=== PATIENT | female | born 2000 | race Caucasian/White ===

== ENCOUNTER 2021-11-17 10:11 | Emergency (ER) | payer OTHER ==
[2021-11-17 10:19] VITALS: BP 147/92
--- NOTE | 2021-11-17 10:41 | ED Physician Documentation ---
PD HPI ABD PAIN - Stated complaint Stated Complaint: MALE - Chief complaint Chief Complaint: Abd Pain - History obtained from History obtained from: Patient - Additional information Additional information: 21-year-old biological female who is transitioning to male and identifies as male has about a 1-month-old IUD in place. For about a week has had pelvic pain and today felt the IUD in an abnormal position and would like it removed. No bleeding. Review of Systems Constitutional: denies: Fever, Chills GI: reports: Abdominal Pain. 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 : None HEENT: None Psych: Depression, Anxiety, ADD/ADHD Musculoskeletal: Other Derm: None - Past Surgical History Past Surgical History: No - Present Medications Home Medications: Ambulatory Orders Medication Instructions Recorded Confirmed Lisdexamfetamine Dimesylate 30 mg ORAL DAILY 11/17/21 11/17/21 [Vyvanse] Montelukast [Singulair] 10 mg PO QPM 11/17/21 11/17/21 Propranolol HCl 20 mg PO DAILY PRN 11/17/21 11/17/21 Testosterone Cypionate 0 mg IM Q7D 11/17/21 11/17/21 - Allergies Allergies/Adverse Reactions: Allergies Allergy/AdvReac Type Severity Reaction Status Date / Time No Known Drug Allergies Allergy Verified 11/17/21 10:18 - Social History Does the pt smoke?: No Smoking Status: Never smoker Does the pt drink ETOH?: No Does the pt have substance abuse?: No - Immunizations Immunizations are current?: Yes PD ED PE NORMAL - Vitals Vital signs reviewed: Yes - General General: Alert and oriented X 3, No acute distress - Abdomen Abdomen: Soft, Non tender - Female Female : Other (TheExam and procedure done with Liz JALLOH present and chaperoning. IUD was visible, not just the strings but also the tip in the cervical os and per patient's request was removed.) - Neuro Neuro: Alert and oriented X 3, Normal speech Results - Vitals Vitals: Vital Signs - 24 hr 11/17/21 10:14 Temperature 36.1 C L Heart Rate 85 Respiratory 16 Rate Blood Pressure 147/92 H O2 Saturation 99 Oxygen O2 Source Room air Departure - Departure Disposition: 01 Home, Self Care Clinical Impression: Malpositioned IUD Qualifiers: Encounter type: initial encounter Qualified Code(s): T83.32XA - Displacement of intrauterine contraceptive device, initial encounter Condition: Good Record reviewed to determine appropriate education?: Yes Comments: We have removed your IUD today at your request, it was malpositioned. Return for new or worsening symptoms. You may have some cramping and bleeding over the next few days. You will need to use an alternative form of control.
[2021-11-17] MEDS ORDERED: IBUPROFEN 600 MG TABLET PO STA (11:16)
== END 2021-11-17 11:23 | disposition home or self-care (01) ==
LOC: EDSEX 10:11 → ED 10:11
DX: T83.32XA Displacement of intrauterine contraceptive device, initial encounter (principal); Z30.432 Encounter for removal of intrauterine contraceptive device
CPT/HCPCS: 58301; 99282; 99283; A9270

== ENCOUNTER 2022-01-08 18:52 | Emergency (ER) | payer OTHER ==
--- OUTSIDE RECORDS SUMMARY | 2022-01-08 19:16 | EXTERNAL MEDICAL SUMMARY RPT | Continuity of Care Document ---
:2000 Author Organization [facility] Address [address] [place] [address] Phone Care Team Providers Name Role Phone Unavailable Unavailable Unavailable Oseas Patel Pa-C Unavailable Unavailable Allergies No information. Encounters No information. Functional Status No information. Immunizations No information. Medications date description facility [id number]+0000 diclofenac sodium All [id number]+0000 diclofenac sodium All [id number]+0000 mupirocin All [id number]+0000 mupirocin All [id number]+0000 olopatadine All [id number]+0000 olopatadine All [id number]+0000 lisdexamfetamine All [id number]+0000 lisdexamfetamine All [id number]+0000 montelukast All [id number]+0000 montelukast All [id number]+0000 diclofenac sodium All [id number]+0000 diclofenac sodium All [id number]+0000 mupirocin All [id number]+0000 montelukast All [id number]+0000 montelukast All [id number]+0000 olopatadine All [id number]+0000 olopatadine All 15509532471538+0000 montelukast All [id number]+0000 montelukast All [id number]+0000 lisdexamfetamine All [id number]+0000 lisdexamfetamine All [id number]+0000 olopatadine All 79252230262452+0000 olopatadine All [id number]+0000 lisdexamfetamine All [id number]+0000 lisdexamfetamine All [id number]+0000 montelukast All [id number]+0000 montelukast All [id number]+0000 lisdexamfetamine All [id number]+0000 lisdexamfetamine All [id number]+0000 diclofenac sodium All [id number]+0000 diclofenac sodium All 23701452623401+0000 olopatadine All [id number]+0000 olopatadine All [id number]+0000 mupirocin All 13107953394652+0000 diclofenac sodium All [id number]+0000 diclofenac sodium All 80232650179294+0000 testosterone enanthate All [id number]+0000 testosterone enanthate All Problems No information. Procedures date description facility +0000 Visit Code Hold All Results/Labs No information. Social History date description facility +0000 Unknown if ever smoked All +0000 Unknown if ever smoked All Vital Signs date measurement value units +0000 BMI BMI 24.81 kg/m2 +0000 BP_diastolic BP_diastolic 86 mmHg +0000 BP_systolic BP_systolic 148 mmHg +0000 heart_rate heart_rate 88 /min +0000 height_metric height_metric 160.02 cm +0000 height_standard height_standard 63 in +0000 respiration_rate respiration_rate 14 /min +0000 temperature_metric temperature_metric 37.06 C +0000 temperature_standard temperature_standard 9 8.7 F +0000 weight_metric weight_metric 63.3 kg +0000 weight_standard weight_standard 139.56 lb
--- NOTE | 2022-01-08 21:08 | ED Physician Documentation ---
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 Patient is right-handed. Occurred about 4 hours prior to arrival. Continuing to bleed. Tetanus up-to-date. 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 : None HEENT: None Psych: Depression, Anxiety, ADD/ADHD Musculoskeletal: Other Derm: None - Past Surgical History Past Surgical History: No - Present Medications Home Medications: Ambulatory Orders Medication Instructions Recorded Confirmed Lisdexamfetamine Dimesylate 30 mg ORAL DAILY 11/17/21 11/17/21 [Vyvanse] Montelukast [Singulair] 10 mg PO QPM 11/17/21 11/17/21 Propranolol HCl 20 mg PO DAILY PRN 11/17/21 11/17/21 Testosterone Cypionate 0 mg IM Q7D 11/17/21 11/17/21 - Allergies Allergies/Adverse Reactions: Allergies Allergy/AdvReac Type Severity Reaction Status Date / Time No Known Drug Allergies Allergy Verified 01/08/22 19:11 - Social History Does the pt smoke?: No Smoking Status: Never smoker Does the pt drink ETOH?: No Does the pt have substance abuse?: No - Immunizations Immunizations are current?: Yes PD ED PE NORMAL - Vitals Vital signs reviewed: Yes - General General: Alert and oriented X 3, No acute distress - Derm Derm: Warm and dry - Extremities Extremities: Other (Left index finger - Small 0.1 cm avulsion to the tip of the index finger. No bony exposure. Very superficial. nvi) - Neuro Neuro: Alert and oriented X 3 Results - Vitals Vitals: Vital Signs - 24 hr 01/08/22 01/08/22 19:08 21:16 Temperature 37.4 C 36.7 C Heart Rate 74 82 Respiratory 16 18 Rate Blood Pressure 156/90 H 147/81 H O2 Saturation 100 100 Oxygen O2 Source Room air PD MEDICAL DECISION MAKING - ED course Complexity details: considered differential, d/w patient ED course: Dermabond was applied to the area after tourniquet in the blood flow. There is no further bleeding. Warnings of infection and instructions on wound care given at bedside. Patient counseled regarding signs and symptoms for which I believe and urgent re-evaluation would be necessary. Patient with good understanding of and agreement to plan and is comfortable going home at this time This document was made in part using voice recognition software. While efforts are made to proofread this document, sound alike and grammatical errors may oc cur. Departure - Departure Disposition: 01 Home, Self Care Clinical Impression: Finger laceration Qualifiers: Encounter type: initial encounter Finger: index finger Damage to nail status: without damage Foreign body presence: without foreign body Laterality: left Qualified Code(s): S61.211A - Laceration without foreign body of left index finger without damage to nail, initial encounter Condition: Good Instructions: ED Laceration Ext Skin Glue Follow-Up: Lois Isabel [Primary Care Provider] - As Needed Comments: Please follow-up with your primary care provider as needed for further care. Return if you worsen. Discharge Date/Time: 01/08/22 21:16
[2022-01-08 21:18] VITALS: BP 147/81
== END 2022-01-08 21:16 | disposition home or self-care (01) ==
LOC: ED 18:52
DX: S61.211A Laceration without foreign body of left index finger without damage to nail, initial encounter (principal); W27.8XXA Contact with other nonpowered hand tool, initial encounter
CPT/HCPCS: 99281; 99282

== ENCOUNTER 2022-06-17 22:34 | Emergency (ER) | payer OTHER ==
[2022-06-17] MEDS ORDERED: BUFFERED LIDOCAINE 10 ML SYRINGE SUBQ STA (22:42)
--- NOTE | 2022-06-17 22:43 | ED Physician Documentation ---
PD HPI LOWER EXT INJURY - Stated complaint Stated Complaint: BIG TOE PX,FEVER,CHILLS - History obtained from History obtained from: Patient (Bilateral foot great toenail are ingrown with chills today. 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 : None HEENT: None Psych: Depression, Anxiety, ADD/ADHD Musculoskeletal: Other Derm: None - Past Surgical History Past Surgical History: No - Present Medications Home Medications: Ambulatory Orders Medication Instructions Recorded Confirmed Montelukast [Singulair] 10 mg PO QPM 11/17/21 11/17/21 Propranolol HCl 20 mg PO DAILY PRN 11/17/21 11/17/21 Testosterone Cypionate 0 mg IM Q7D 11/17/21 11/17/21 Cetirizine [ZyrTEC] 10 mg PO DAILY 06/17/22 06/17/22 Ibuprofen [Motrin] 600 mg PO Q6H PRN 06/17/22 06/17/22 cephALEXin [Keflex] 500 mg PO Q6H 06/17/22 06/17/22 - Allergies Allergies/Adverse Reactions: Allergies Allergy/AdvReac Type Severity Reaction Status Date / Time No Known Drug Allergies Allergy Verified 06/17/22 22:49 - Social History Does the pt smoke?: No Smoking Status: Never smoker Does the pt drink ETOH?: No Does the pt have substance abuse?: No - Immunizations Immunizations are current?: Yes - POLST Patient has POLST: No PD ED PE NORMAL - Vitals Vital signs reviewed: Yes - General General: Alert and oriented X 3, No acute distress - Extremities Extremities: Other (Medial side of the right great toe and both sides of the left great toe are ingrown with infection) - Neuro Neuro: Alert and oriented X 3, Normal speech Results - Vitals Vitals: Vital Signs - 24 hr 06/17/22 22:35 Temperature 36.7 C Heart Rate 93 Respiratory 16 Rate Blood Pressure 155/100 H O2 Saturation 100 Oxygen O2 Source Room air Procedures - General procedure General procedure: Both great toes were blocked with buffered lidocaine in standard fashion. Then the medial and lateral fifths of the left great toenail and the medial fifth of the right great toenail were excised using scissors with out complication and dressed. Departure - Departure Clinical Impression: Ingrown toenail of both feet Condition: Good Record reviewed to determine appropriate education?: Yes Instructions: ED Ingrown Toenail Excised Comments: Continue the antibiotic. Warm water soaks and bandages. Return if worse.
[2022-06-17 22:47] VITALS: BP 155/100
== END 2022-06-17 23:31 | disposition home or self-care (01) ==
LOC: ED 22:34
DX: L60.0 Ingrowing nail (principal)
CPT/HCPCS: 11750

== ENCOUNTER 2022-09-29 14:33 | Emergency (ER) | payer OTHER ==
--- NOTE | 2022-09-29 15:28 | ED Physician Documentation ---
PD HPI URI - Stated complaint Stated Complaint: SOA,CHEST PX,FEVER,NAUSEA - Chief complaint Chief Complaint: Cardiac - History obtained from History obtained from: Patient - History of Present Illness Timing - onset: How many days ago (4) Timing duration: Days (4) Timing details: Gradual onset, Still present (The patient claims onset of sinus and frontal area congestion and pressure for the last 4 days progressively worsening and now associated with some allergic pain in the chest. No wheezing per se. Mild cough only.) Associated symptoms: Fever (subjective at home), Chills, Sweats, Nasal congestion (with purulent nasal drainage), Sinus pain, Dry cough. No: Sore throat, Productive cough Contributing factors: No: Sick contact, Travel Worsened by: Activity Recently seen: Not recently seen Review of Systems Constitutional: reports: Fever, Chills, Myalgias Nose: reports: Congestion, Sinus pressure / pain Throat: denies: Sore throat Cardiac: reports: Chest pain / pressure (today). denies: Palpitations Respiratory: reports: Cough. denies: Dyspnea GI: denies: Nausea, Vomiting, Diarrhea Skin: denies: Rash, Lesions Neurologic: reports: Generalized weakness. 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 : None HEENT: None Psych: Depression, Anxiety, ADD/ADHD Musculoskeletal: Other Derm: None - Past Surgical History Past Surgical History: No - Present Medications Home Medications: Ambulatory Orders Medication Instructions Recorded Confirmed Montelukast [Singulair] 10 mg PO QPM 11/17/21 11/17/21 Propranolol HCl 20 mg PO DAILY PRN 11/17/21 11/17/21 Testosterone Cypionate 0 mg IM Q7D 11/17/21 11/17/21 Cetirizine [ZyrTEC] 10 mg PO DAILY 06/17/22 06/17/22 Ibuprofen [Motrin] 600 mg PO Q6H PRN 06/17/22 06/17/22 cephALEXin [Keflex] 500 mg PO Q6H 06/17/22 06/17/22 Albuterol Sulf [Ventolin Hfa 1 - 2 puffs INH Q4HR PRN #1 each 09/29/22 Inhaler] Amoxicillin 500 mg PO TID #21 cap 09/29/22 dexAMETHasone [Decadron] 4 mg PO DAILY #5 tablet 09/29/22 - Allergies Allergies/Adverse Reactions: Allergies Allergy/AdvReac Type Severity Reaction Status Date / Time No Known Drug Allergies Allergy Verified 06/17/22 22:49 - Social History Does the pt smoke?: No Smoking Status: Never smoker Does the pt drink ETOH?: No Does the pt have substance abuse?: No - Immunizations Immunizations are current?: Yes - POLST Patient has POLST: No PD ED PE NORMAL - Vitals Vital signs reviewed: Yes - General General: Alert and oriented X 3, No acute distress, Well developed/nourished - HEENT HEENT: Moist mucous membranes, Pharynx benign - Neck Neck: Supple, no meningeal sign, No adenopathy - Cardiac Cardiac: RRR, No murmur - Respiratory Respiratory: Clear bilaterally - Derm Derm: Normal color, Warm and dry - Extremities Extremities: No edema, No calf tenderness / cord - Neuro Neuro: Alert and oriented X 3, No motor deficit, Normal speech Results - Vitals Vitals: Vital Signs - 24 hr 09/29/22 09/29/22 09/29/22 14:38 14:49 15:32 Temperature 36.6 C Heart Rate 52 L Respiratory 20 18 18 Rate Blood Pressure 141/92 H O2 Saturation 100 09/29/22 09/29/22 15:43 16:38 Temperature 36.7 C Heart Rate 55 L 64 Respiratory 14 17 Rate Blood Pressure 124/109 H 114/78 O2 Saturation 99 99 Oxygen O2 Source Room air - EKG (time done) 14:42 EKG releavant findings:: EKG personally interpreted by author of this note. Relevant findings are: Rate: Rate (enter#) (54) Rhythm: Sinus bradycardia [place]: Normal Intervals: Normal [place] QRS: Normal Ischemia: Normal ST segments. No: ST elevation c/w ischemia, ST depression - Rads (name of study) chest xray Relevant Findings:: Prelim report reviewed (no acute abnormality), EMP independent interpretation of test PD Medical Decision Making - ED course Complexity details: considered differential (Symptoms could be consistent with a sinus infection. Mild cough but mostly some pleuritic pain in the chest. History of asthma. Consider viral illness versus bacterial. EKG and chest x- ray without any acute abnormalities.), d/w patient Departure - Departure Disposition: 01 Home, Self Care Clinical Impression: Upper respiratory infection, Chest pain Condition: Stable Record reviewed to determine appropriate education?: Yes Instructions: ED Chest Pain Pleurisy Follow-Up: SILVESTRE COOK PA [Primary Care Provider] - Prescriptions: Albuterol Sulf [Ventolin Hfa Inhaler] 1 - 2 puffs INH Q4HR PRN #1 each PRN Reason: Shortness Of Air/Wheezing Amoxicillin 500 mg PO TID #21 cap dexAMETHasone [Decadron] 4 mg PO DAILY #5 tablet Comments: Your chest x-ray is clear without any signs of pneumonia, fluid around the lungs, collapsed lung etc. Your EKG was normal as well without any signs of irritation of the heart. Your symptoms sound potentially of viral illness and there may be some element of inflammation through the chest causing the pain there (pleurisy). Your description does sound possible for a sinus infection. We can treat this with the Decadron steroid for the inflammation through your airways and sinuses as well as amoxicillin antibiotic 3 times daily for a week. Use albuterol inhaler 2 to 3 puffs every 4-6 hours if needed for cough or wheezing if it develops. Otherwise Tylenol every 4-6 hours if needed for pains. I sent your prescriptions to the [facility]. We did receive first doses of the antibiotic and steroid here. Forms: PCP List
[2022-09-29] MEDS: AMOXICILLIN 250 MG CAPSULE PO STA (15:37)
[2022-09-29] MEDS: dexAMETHasone 4 MG TABLET PO STA (15:37)
[2022-09-29 15:51] VITALS: O2SAT 99
--- NOTE | 2022-09-29 15:55 | XRAY Report ---
PROCEDURE: Chest 1 View X-Ray INDICATIONS: chest pain; URI TECHNIQUE: One view of the chest was acquired. COMPARISON: None. FINDINGS: Surgical changes and devices: None. Lungs and pleura: No pleural effusions or pneumothorax. Lungs are clear. Mediastinum: Mediastinal contours appear normal. Heart size is normal. Bones and chest wall: No suspicious bony lesions. Overlying soft tissues appear unremarkable. IMPRESSION: No acute cardiopulmonary process. Reviewed by: West Rueda MD on 09/29/2022 3:54 PM PDT Approved by: West Rueda MD on 09/29/2022 3:54 PM PDT Station ID: [id number]
[2022-09-29 16:48] VITALS: BP 114/78
== END 2022-09-29 16:59 | disposition home or self-care (01) ==
LOC: ED 14:33
DX: J06.9 Acute upper respiratory infection, unspecified (principal); R07.89 Other chest pain; Z79.899 Other long term (current) drug therapy
CPT/HCPCS: 93005; 99284

== ENCOUNTER 2022-10-16 21:47 | Emergency (ER) | payer OTHER ==
--- NOTE | 2022-10-17 01:01 | ED Physician Documentation ---
PD HPI DYSPNEA - Stated complaint Stated Complaint: CP/SOA - Chief complaint Chief Complaint: Resp - History obtained from History obtained from: Patient - Additional information Additional information: HPI from patient. 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 No inciting event. Feels similar to previous asthma exacerbations but no improvement with albuterol MDI used STORES CLERK. T+R 09/29/22 for similar symptoms. Denies fever. 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 Review of Systems Constitutional: denies: Fever Cardiac: denies: Chest pain / pressure (chest tightness but not pain per se) Respiratory: reports: Dyspnea, Cough. 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 : None HEENT: None Psych: Depression, Anxiety, ADD/ADHD Musculoskeletal: Other Derm: None - Past Surgical History Past Surgical History: No - Present Medications Home Medications: Ambulatory Orders Medication Instructions Recorded Confirmed Montelukast [Singulair] 10 mg PO QPM 11/17/21 11/17/21 Propranolol HCl 20 mg PO DAILY PRN 11/17/21 11/17/21 Testosterone Cypionate 0 mg IM Q7D 11/17/21 11/17/21 Cetirizine [ZyrTEC] 10 mg PO DAILY 06/17/22 06/17/22 Ibuprofen [Motrin] 600 mg PO Q6H PRN 06/17/22 06/17/22 cephALEXin [Keflex] 500 mg PO Q6H 06/17/22 06/17/22 Albuterol Sulf [Ventolin Hfa 1 - 2 puffs INH Q4HR PRN #1 each 09/29/22 Inhaler] Amoxicillin 500 mg PO TID #21 cap 09/29/22 dexAMETHasone [Decadron] 4 mg PO DAILY #5 tablet 09/29/22 predniSONE [Deltasone] 20 mg PO BID #10 tab 10/17/22 - Allergies Allergies/Adverse Reactions: Allergies Allergy/AdvReac Type Severity Reaction Status Date / Time No Known Drug Allergies Allergy Verified 10/16/22 21:49 - Social History Does the pt smoke?: No Smoking Status: Never smoker Does the pt drink ETOH?: No Does the pt have substance abuse?: No - Immunizations Immunizations are current?: Yes - POLST Patient has POLST: No PD ED PE NORMAL - Vitals Vital signs reviewed: Yes - General General: Alert and oriented X 3, No acute distress, Well developed/nourished - Cardiac Cardiac: RRR, No murmur - Respiratory Respiratory: No respiratory distress PD ED PE EXPANDED - Respiratory Respiratory: Decreased breath sounds. No: Distress Results - Vitals Vitals: Oxygen O2 Source Room air PD Medical Decision Making - ED course Complexity details: reviewed old records (reviewed ED MD note from [facility] ED visit 09/29), considered differential, d/w patient ED course: Presents with symptoms c/w previous asthma exacerbations, no improvement with albuterol MDI used by patient STORES CLERK. NAD and decreased but adequate air movement bilaterally on lung auscultation. Given duoneb and 20mg PO prednisone with rx provided for prednisone 20mg BID x 5 days. Patient has had tolerable but unpleasant side effects with previous steroid prescriptions (palpitations, difficulty sleeping) but not consistently. Departure - Departure Disposition: 01 Home, Self Care Clinical Impression: Pleurisy Condition: Good Instructions: ED Chest Pain Pleurisy Follow-Up: SILVESTRE COOK PA [Primary Care Provider] - Within 3 Days Prescriptions: predniSONE [Deltasone] 20 mg PO BID #10 tab Forms: PCP List Discharge Date/Time: 10/17/22 01:55
[2022-10-17] MEDS ORDERED: predniSONE 20 MG TABLET PO STA (01:19)
[2022-10-17] MEDS ORDERED: IPRATROPIUM/ALBUTEROL 3 ML NEB INH STA (01:19)
[2022-10-17 03:29] VITALS: BP 118/73; O2SAT 97
== END 2022-10-17 01:55 | disposition home or self-care (01) ==
LOC: ED 21:47
DX: R09.1 Pleurisy (principal)
CPT/HCPCS: 93005; 94640; 99283; J7512

== ENCOUNTER 2022-12-07 17:31 | Emergency (ER) | payer OTHER ==
[2022-12-07 17:54] VITALS: O2SAT 100
[2022-12-07 18:11] LABS: BILIRUBIN,URINE NEGATIVE (NEGATIVE); GLUCOSE, URINE (UA) NEGATIVE (NEGATIVE); KETONES,URINE (UA) NEGATIVE (NEGATIVE); LEUKOCYTE ESTERASE, URINE NEGATIVE (NEGATIVE); NITRITE,URINE NEGATIVE (NEGATIVE); OCCULT BLOOD,URINE TRACE-INTA (NEGATIVE); PH,URINE 6.5 PH (5.0-7.5); PROTEIN,URINE NEGATIVE (NEGATIVE); UROBILINOGEN,URINE 0.2 (NORMAL) E.U./dL (NORMAL)
[2022-12-07 18:17] LABS: CLARITY,URINE CLEAR (CLEAR); HCG UR QUAL NEGATIVE
[2022-12-07 18:20] LABS: BASOPHILS % (AUTO) 0.5 %; EOSINOPHILS # (AUTO) 0.2 10^3/uL (0.0-0.7); HCT - HEMATOCRIT 46.4 % (37.0-47.0); HGB - HEMOGLOBIN 15.6 g/dL (12.0-16.0); LYMPHOCYTES # (AUTO) 2.6 10^3/uL (1.5-3.5); LYMPHOCYTES % (AUTO) 29.7 %; MEAN CORPUSCULAR HEMOGLOBIN 27.9 pg (27.0-31.0); MEAN CORPUSCULAR HGB CONC 33.6 g/dL (32.0-36.0); MONOCYTES # (AUTO) 0.4 10^3/uL (0.0-1.0); MONOCYTES % (AUTO) 4.4 %; NEUTROPHILS # (AUTO) 5.6 10^3/uL (1.5-6.6); NEUTROPHILS % (AUTO) 62.9 %; PLT - PLATELET COUNT 332 10^3/uL (130-450); RED BLOOD COUNT 5.59 10^6/uL (4.20-5.40); RED CELL DISTRIBUTION WIDTH 11.9 % (12.0-15.0); WHITE BLOOD COUNT 8.9 x10^3/uL (4.8-10.8)
[2022-12-07 18:34] LABS: ALBUMIN 5.5 g/dL (3.2-5.5); ALBUMIN/GLOBULIN RATIO 1.7 (1.0-2.2); BILIRUBIN,TOTAL 0.7 mg/dL (0.2-1.0); CALCIUM 10.4 mg/dL (8.5-10.3); CREATININE 0.8 mg/dL (0.6-1.3); POTASSIUM 3.8 mmol/L (3.5-4.5); TOTAL PROTEIN 8.7 g/dL (6.4-8.9)
--- NOTE | 2022-12-07 19:23 | ED Physician Documentation ---
PD HPI ABD PAIN - Stated complaint Stated Complaint: ABD PX - Chief complaint Chief Complaint: Abd Pain - History obtained from History obtained from: Patient - Additional information Additional information: 3 days worth of left lower quadrant pain radiating up. Patient is biologically female but undergoing transition therapy and has not had a period in about a year. Has had loose stools lately no history of abdominal surgeries. 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 HEENT: None Psych: Depression, Anxiety, ADD/ADHD Musculoskeletal: Other Derm: None - Past Surgical History Past Surgical History: No HEENT: Other - Present Medications Home Medications: Ambulatory Orders Medication Instructions Recorded Confirmed Montelukast [Singulair] 10 mg PO QPM 11/17/21 11/17/21 Propranolol HCl 20 mg PO DAILY PRN 11/17/21 11/17/21 Testosterone Cypionate 0 mg IM Q7D 11/17/21 11/17/21 Cetirizine [ZyrTEC] 10 mg PO DAILY 06/17/22 06/17/22 Ibuprofen [Motrin] 600 mg PO Q6H PRN 06/17/22 06/17/22 cephALEXin [Keflex] 500 mg PO Q6H 06/17/22 06/17/22 Albuterol Sulf [Ventolin Hfa 1 - 2 puffs INH Q4HR PRN #1 each 09/29/22 Inhaler] Amoxicillin 500 mg PO TID #21 cap 09/29/22 dexAMETHasone [Decadron] 4 mg PO DAILY #5 tablet 09/29/22 predniSONE [Deltasone] 20 mg PO BID #10 tab 10/17/22 Amox/Clav 875/125 [Augmentin] 1 each PO Q12H #10 tablet 12/07/22 - Allergies Allergies/Adverse Reactions: Allergies Allergy/AdvReac Type Severity Reaction Status Date / Time No Known Drug Allergies Allergy Verified 12/07/22 17:50 - Social History Does the pt smoke?: No Smoking Status: Never smoker Does the pt drink ETOH?: No Does the pt have substance abuse?: No - Immunizations Immunizations are current?: Yes - POLST Patient has POLST: No PD ED PE NORMAL - Vitals Vital signs reviewed: Yes - General General: Alert and oriented X 3, No acute distress - Cardiac Cardiac: RRR, No murmur - Respiratory Respiratory: No respiratory distress, Clear bilaterally - Abdomen Abdomen: Soft, Other (Mild tenderness in the left pelvis without surgical signs) - Neuro Neuro: Alert and oriented X 3, Normal speech (Breath sounds clear) Results - Vitals Vitals: Vital Signs - 24 hr 12/07/22 12/07/22 17:45 21:06 Temperature 36.1 C L Heart Rate 79 80 Respiratory 16 18 Rate Blood Pressure 144/94 H 128/84 H O2 Saturation 100 100 Oxygen O2 Source Room air - Labs Labs: Laboratory Tests 12/07/22 12/07/22 12/07/22 18:05 18:05 18:07 WBC 8.9 RBC 5.59 H Hgb 15.6 Hct 46.4 MCV 83.0 MCH 27.9 MCHC 33.6 RDW 11.9 L Plt Count 332 MPV 9.0 Neut # (Auto) 5.6 Lymph # (Auto) 2.6 [place] # (Auto) 0.4 Eos # (Auto) 0.2 Baso # (Auto) 0.0 Absolute Nucleated RBC 0.00 Nucleated RBC % 0.0 Sodium Potassium Chloride Carbon Dioxide Anion Gap BUN Creatinine Estimated GFR (MDRD) Glucose Calcium Total Bilirubin AST ALT Alkaline Phosphatase Total Protein Albumin Globulin Albumin/Globulin Ratio Lipase Urine Color YELLOW Urine Clarity CLEAR Urine pH 6.5 Ur Specific [place] 1.025 Urine Protein NEGATIVE Urine Glucose (UA) NEGATIVE Urine Ketones NEGATIVE Urine Occult Blood TRACE-INTA Urine Nitrite NEGATIVE Urine Bilirubin NEGATIVE Urine Urobilinogen 0.2 (NORMAL) Ur Leukocyte Esterase NEGATIVE Ur Microscopic Review NOT INDICATED Urine Culture Comments NOT INDICATED Urine HCG, Qual NEGATIVE 12/07/22 18:07 WBC RBC Hgb Hct MCV MCH MCHC RDW Plt Count MPV Neut # (Auto) Lymph # (Auto) [place] # (Auto) Eos # (Auto) Baso # (Auto) Absolute Nucleated RBC Nucleated RBC % Sodium 138 Potassium 3.8 Chloride 99 L Carbon Dioxide 30 Anion Gap 9.0 BUN 17 Creatinine 0.8 Estimated GFR (MDRD) 91 Glucose 96 Calcium 10.4 H Total Bilirubin 0.7 AST 24 ALT 38 Alkaline Phosphatase 79 Total Protein 8.7 Albumin 5.5 Globulin 3.2 Albumin/Globulin Ratio 1.7 Lipase 27 Urine Color Urine Clarity Urine pH Ur Specific [place] Urine Protein Urine Glucose (UA) Urine Ketones Urine Occult Blood Urine Nitrite Urine Bilirubin Urine Urobilinogen Ur Leukocyte Esterase Ur Microscopic Review Urine Culture Comments Urine HCG, Qual - Rads (name of study) pelvic sono Relevant Findings:: Prelim report reviewed PD Medical Decision Making - ED course ED course: Left lower quadrant pain in the setting of now male transgender but no history of abdominal or pelvic surgeries. Benign exam. Ultrasound negative. CBC unremarkable. CMP normal. Urinalysis// test normal/negative. Presumed colitis by process of elimination and would do a short course of Augmentin and a day of clear liquid diet. Departure - Departure Disposition: Home, Self Care Clinical Impression: Abdominal pain Qualifiers: Abdominal location: left lower quadrant Qualified Code(s): R10.32 - Left lower quadrant pain Condition: Good Record reviewed to determine appropriate education?: Yes Instructions: ED Abdominal Pain Female Non-Specific Abdominal Pain Prescriptions: Amox/Clav 875/125 [Augmentin] 1 each PO Q12H #10 tablet Comments: Given your loose stools, left lower quadrant pain, and normal pelvic ultrasound and labs I presume this is colonic irritation causing your pain. Recommend clear liquid diet for a day and we are putting you on a short course of antibiotics. Return if worse. Follow-up with your primary care physician regardless, if symptoms are persistent consider referral for colonoscopy. I sent your prescription electronically to the [facility] pharmacy. Forms: PCP List Discharge Date/Time: 12/07/22 21:16
[2022-12-07] MEDS ORDERED: HYDROcod/ACETAM 5/325 MG TABLET PO STA (19:40)
[2022-12-07] MEDS ORDERED: AMOX/CLAV 875 MG/125 MG TABLET PO STA (20:53)
[2022-12-07] MEDS ORDERED: HYDROcod/ACET 5/325 Prepack 4 PO STA (20:53)
[2022-12-07 21:12] VITALS: BP 128/84
--- NOTE | 2022-12-07 21:20 | Ultrasound Report ---
PROCEDURE: Pelvic w/Doppler Complete INDICATIONS: pelvic pain TECHNIQUE: Real-time scanning was performed of the pelvic organs, with image documentation. COMPARISON: None. FINDINGS: Uterus: Uterus is anteverted and measures 6.1 x 1.9 x 4.6 cm. The myometrium is homogeneous. The e ndometrium measures 7 mm in combined thickness. Ovaries: The right ovary measures 3.0 x 1.5 x 2.1 cm, with a calculated ovarian volume of 5 cc. The left ovary measures 2.5 x 1.5 x 1.9 cm, with a calculated ovarian volume of 4 cc. The ovaries have a normal sonographic appearance. Less than 12 follicles can be seen in each ovary. No adnexal april s are seen. No cystic lesions measuring greater than 3 cm. Other: No pathologic free abdominal or pelvic fluid. IMPRESSION: Unremarkable pelvic ultrasound. Reviewed by: West Nieves MD on 12/07/2022 9:19 PM PDT Approved by: West Nieves MD on 12/07/2022 9:19 PM PDT Station ID: [id number]
== END 2022-12-07 21:16 | disposition home or self-care (01) ==
LOC: ED 17:31
DX: R10.32 Left lower quadrant pain (principal); R19.7 Diarrhea, unspecified
CPT/HCPCS: 36415; 76856; 80053; 81003; 81025; 83690; 85025; 93975; 99284; A9270; 81001; 87086

== ENCOUNTER 2022-12-08 06:43 | Emergency (ER) | payer OTHER ==
[2022-12-08 07:01] VITALS: BP 140/81; O2SAT 98
[2022-12-08] MEDS ORDERED: ONDANSETRON 4 MG/2 ML VIAL IVP STA (07:16)
[2022-12-08] MEDS ORDERED: MORPHINE 2 MG/ML CARPUJECT IVP STA (07:16)
[2022-12-08] MEDS ORDERED: SODIUM CHLORIDE 0.9% 1,000 ML IV STA (07:16)
[2022-12-08 07:32] LABS: BASOPHILS % (AUTO) 0.5 %; EOSINOPHILS # (AUTO) 0.2 10^3/uL (0.0-0.7); EOSINOPHILS % (AUTO) 3.8 %; HCT - HEMATOCRIT 45.4 % (37.0-47.0); HGB - HEMOGLOBIN 15.7 g/dL (12.0-16.0); LYMPHOCYTES # (AUTO) 2.4 10^3/uL (1.5-3.5); LYMPHOCYTES % (AUTO) 38.2 %; MEAN CORPUSCULAR HEMOGLOBIN 28.4 pg (27.0-31.0); MEAN CORPUSCULAR HGB CONC 34.6 g/dL (32.0-36.0); MEAN CORPUSCULAR VOLUME 82.1 fL (81.0-99.0); MEAN PLATELET VOLUME 8.9 fL (7.9-10.8); MONOCYTES # (AUTO) 0.4 10^3/uL (0.0-1.0); MONOCYTES % (AUTO) 6.4 %; NEUTROPHILS # (AUTO) 3.2 10^3/uL (1.5-6.6); NEUTROPHILS % (AUTO) 50.8 %; PLT - PLATELET COUNT 299 10^3/uL (130-450); RED BLOOD COUNT 5.53 10^6/uL (4.20-5.40); RED CELL DISTRIBUTION WIDTH 11.9 % (12.0-15.0); WHITE BLOOD COUNT 6.4 x10^3/uL (4.8-10.8)
[2022-12-08 07:54] LABS: ALBUMIN 5.3 g/dL (3.2-5.5); ALBUMIN/GLOBULIN RATIO 1.8 (1.0-2.2); CALCIUM 10.4 mg/dL (8.5-10.3); CREATININE 0.7 mg/dL (0.6-1.3); POTASSIUM 3.8 mmol/L (3.5-4.5); TOTAL PROTEIN 8.3 g/dL (6.4-8.9)
[2022-12-08] MEDS ORDERED: iohexoL-300 100 ML VIAL IVP ONE (08:09)
--- NOTE | 2022-12-08 08:14 | ED Physician Documentation ---
PD HPI ABD PAIN - Stated complaint Stated Complaint: ABD PX - Chief complaint Chief Complaint: Abd Pain - History obtained from History obtained from: Patient - Additional information Additional information: Patient is a 22-year-old presenting for evaluation of right lower quadrant pain. Patient was seen last night for left lower quadrant pain with labs and ultrasound imaging with unremarkable work-up. Patient had reported having some loose stools earlier in the day so presumptive diagnosis for colitis and was started on Augmentin. Patient was also given [place] for home. Tried a [place] at 2 AM but Pain worse again upon awakening at 5:00 this morning. Reports associated nausea. No vomiting. No current chest pain, shortness of air, fevers. Denies vaginal bleeding or discharge.Patient is biologically female but undergoing transition and identifies as male.No periods In the last year. Review of Systems Constitutional: denies: Fever Cardiac: denies: Chest pain / pressure Respiratory: denies: Dyspnea GI: reports: Abdominal Pain. 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 HEENT: None Psych: Depression, Anxiety, ADD/ADHD Musculoskeletal: Other Derm: None - Past Surgical History Past Surgical History: No HEENT: Other - Present Medications Home Medications: Ambulatory Orders Medication Instructions Recorded Confirmed Montelukast [Singulair] 10 mg PO QPM 11/17/21 11/17/21 Propranolol HCl 20 mg PO DAILY PRN 11/17/21 11/17/21 Testosterone Cypionate 0 mg IM Q7D 11/17/21 11/17/21 Cetirizine [ZyrTEC] 10 mg PO DAILY 06/17/22 06/17/22 Ibuprofen [Motrin] 600 mg PO Q6H PRN 06/17/22 06/17/22 cephALEXin [Keflex] 500 mg PO Q6H 06/17/22 06/17/22 Albuterol Sulf [Ventolin Hfa 1 - 2 puffs INH Q4HR PRN #1 each 09/29/22 Inhaler] Amoxicillin 500 mg PO TID #21 cap 09/29/22 dexAMETHasone [Decadron] 4 mg PO DAILY #5 tablet 09/29/22 predniSONE [Deltasone] 20 mg PO BID #10 tab 10/17/22 Amox/Clav 875/125 [Augmentin] 1 each PO Q12H #10 tablet 12/07/22 - Allergies Allergies/Adverse Reactions: Allergies Allergy/AdvReac Type Severity Reaction Status Date / Time No Known Drug Allergies Allergy Verified 12/07/22 17:50 - Social History Does the pt smoke?: No Smoking Status: Never smoker Does the pt drink ETOH?: No Does the pt have substance abuse?: No - Immunizations Immunizations are current?: Yes - POLST Patient has POLST: No PD ED PE NORMAL - General General: Alert and oriented X 3, No acute distress, Well developed/nourished - HEENT HEENT: Atraumatic, Moist mucous membranes, Pharynx benign - Neck Neck: Supple, no meningeal sign - Cardiac Cardiac: RRR, No murmur - Respiratory Respiratory: No respiratory distress, Clear bilaterally - Abdomen Abdomen: Normal bowel sounds, Soft, Non distended, Other (Right lower quadrant tenderness, no rebound, no mass, no guarding) - Derm Derm: Warm and dry - Neuro Neuro: Normal speech Results - Vitals Vitals: Vital Signs - 24 hr 12/08/22 06:48 Temperature 37.3 C Heart Rate 78 Respiratory 20 Rate Blood Pressure 140/81 H O2 Saturation 98 Oxygen O2 Source Room air - Labs Labs: Laboratory Tests 12/08/22 12/08/22 07:27 07:27 WBC 6.4 RBC 5.53 H Hgb 15.7 Hct 45.4 MCV 82.1 MCH 28.4 MCHC 34.6 RDW 11.9 L Plt Count 299 MPV 8.9 Neut # (Auto) 3.2 Lymph # (Auto) 2.4 [place] # (Auto) 0.4 Eos # (Auto) 0.2 Baso # (Auto) 0.0 Absolute Nucleated RBC 0.00 Nucleated RBC % 0.0 Sodium 136 Potassium 3.8 Chloride 99 L Carbon Dioxide 27 Anion Gap 10.0 BUN 16 Creatinine 0.7 Estimated GFR (MDRD) 106 Glucose 88 Calcium 10.4 H Total Bilirubin 1.0 AST 22 ALT 35 Alkaline Phosphatase 72 Total Protein 8.3 Albumin 5.3 Globulin 3.0 Albumin/Globulin Ratio 1.8 Lipase 21 PD Medical Decision Making - ED course Complexity details: reviewed results, re-evaluated patient, d/w patient ED course: Patient is a 22-year-old presenting for evaluation of right lower quadrant pain since last night. Yesterday was evaluated for left lower quadrant pain with unremarkable pelvic ultrasound and reassuring labs. Has mild tenderness in the right lower quadrant and towards McBurney's. Vital signs are stable. Repeat CBC and chemistries obtained and reviewed and without significant findings. CT of the abdomen and pelvis was ordered and without explanation for the patient's symptoms. Patient felt better after IV morphine, IV Zofran and fluids. Repeat abdominal exam is benign. At this time I explained that the etiology of his symptoms is unclear but would recommend close follow-up with primary care. Advised on strict return precautions for any worsening. Departure - Departure Disposition: 01 Home, Self Care Clinical Impression: Right lower quadrant abdominal pain Condition: Stable Instructions: ED Abdominal Pain Female Non-Specific Abdominal Pain Comments: Your labs today are unchanged without any significant abnormalities and the CT scan of the abdomen and pelvis does not reveal any source for your recent symptoms. I would recommend close follow-up with your primary care provider. I do not see signs of inflammation on the CAT scan or in your lab testing so I would consider holding off on the antibiotic at this time to prevent further GI upset. Please return to the emergency department with any worsening symptoms such as increased pain. Forms: PCP List Discharge Date/Time: 12/08/22 09:30
--- NOTE | 2022-12-08 08:29 | CT Report ---
PROCEDURE: ABDOMEN/PELVIS W INDICATIONS: RLQ pain CONTRAST: 100ml omni 300 TECHNIQUE: After the administration of intravenous contrast, 5 mm thick sections acquired from the diaphragms to the symphysis. 5 mm thick coronal and sagittal reformats were acquired. For radiation dose reducti on, the following was used: automated exposure control, adjustment of mA and/or kV according to cherise ent size. COMPARISON: Pelvic ultrasound 12/07/2022 FINDINGS: Image quality: Excellent. Lung bases and heart: Unremarkable. Liver: No solid mass. Gallbladder and biliary tree: No radiopaque stones or wall thickening. No biliary dilation. Spleen: No splenomegaly. Pancreas: No pancreatic ductal dilation. Adrenals: No adrenal nodule. Kidneys and ureters: No hydronephrosis. No renal cystic lesion which requires follow up. No solid mas s. Bowel and peritoneum: No bowel distension. No pathologic free fluid. Normal-appearing appendix. Lymph nodes: No central or retroperitoneal adenopathy. Vessels: No infrarenal aortic aneurysm. PELVIS Reproductive organs: Unremarkable. Bladder: No abnormal wall thickening, accounting for underdistension. Pelvic lymph nodes: No pelvic adenopathy by size criteria. Bones: No acute or suspicious osseous abnormality. Other: No significant ventral or inguinal hernia. IMPRESSION: No acute process in the abdomen or pelvis to explain patient's symptoms. Reviewed by: Emmy Hooper MD on 12/08/2022 8:28 AM PDT Approved by: Emmy Hooper MD on 12/08/2022 8:28 AM PDT Station ID: [id number]
== END 2022-12-08 09:30 | disposition home or self-care (01) ==
LOC: ED 06:43
DX: R10.31 Right lower quadrant pain (principal); Z79.899 Other long term (current) drug therapy
CPT/HCPCS: 36415; 74177; 80053; 83690; 85025; 96374; 99283; 99284; Q9967

== ENCOUNTER 2022-12-09 08:00 | Outpatient (CLI) | payer OTHER ==
[2022-12-10 11:30] LABS: CHLAMYDIA TRACHOMATIS DNA NEGATIVE (NEGATIVE); NEISSERIA GONORRHOEAE DNA NEGATIVE (NEGATIVE); TRICHOMONAS VAGINALIS DNA NEGATIVE (NEGATIVE)
== END 2022-12-09 23:59 | disposition home or self-care (01) ==
LOC: LAB.N 08:00
PROVIDERS: ATTEND Family Medicine
DX: R10.2 Pelvic and perineal pain (principal)
CPT/HCPCS: 87491; 87591; 87661

== ENCOUNTER 2023-01-05 14:05 | Emergency (ER) | payer OTHER ==
--- NOTE | 2023-01-05 15:15 | XRAY Report ---
PROCEDURE: Chest 1 View X-Ray INDICATIONS: sob TECHNIQUE: One view of the chest was acquired. COMPARISON: Chest x-ray 09/29/2022. FINDINGS: Surgical changes and devices: None. Lungs and pleura: No pleural effusions or pneumothorax. Lungs are clear. Mediastinum: Mediastinal contours appear normal. Heart size is normal. Bones and chest wall: No suspicious bony lesions. Overlying soft tissues appear unremarkable. IMPRESSION: No acute cardiopulmonary process. Reviewed by: Bhavin Wheeler MD on 01/05/2023 3:14 PM PST Approved by: Bhavin Wheeler MD on 01/05/2023 3:14 PM PST Station ID: [id number]
[2023-01-05] MEDS ORDERED: KETOROLAC 60 MG/2 ML VIAL IM STA (17:49)
--- NOTE | 2023-01-05 18:09 | ED Physician Documentation ---
PD HPI CHEST PAIN - Stated complaint Stated Complaint: CHEST PX,SOA - Chief complaint Chief Complaint: Resp - History obtained from History obtained from: Patient - Additional information Additional information: The patient comes to the emergency department chief complaint of sharp chest pains in her anterior chest. She states she has had these pains many times before and they just worry her every time, even though she has been told many times that there is nothing serious wrong. The patient denies any shortness of breath. She states she does not feel anxious. No nausea, diaphoresis, or light headedness. The patient states the symptoms are on par with what she has had previously. No fevers or chills. No cough or other upper respiratory symptoms. No other complaints at this time. 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 HEENT: None Psych: Depression, Anxiety, ADD/ADHD Musculoskeletal: Other Derm: None - Past Surgical History Past Surgical History: No HEENT: Other - Present Medications Home Medications: Ambulatory Orders Medication Instructions Recorded Confirmed Montelukast [Singulair] 10 mg PO QPM 11/17/21 11/17/21 Propranolol HCl 20 mg PO DAILY PRN 11/17/21 11/17/21 Testosterone Cypionate 0 mg IM Q7D 11/17/21 11/17/21 Cetirizine [ZyrTEC] 10 mg PO DAILY 06/17/22 06/17/22 Ibuprofen [Motrin] 600 mg PO Q6H PRN 06/17/22 06/17/22 cephALEXin [Keflex] 500 mg PO Q6H 06/17/22 06/17/22 Albuterol Sulf [Ventolin Hfa 1 - 2 puffs INH Q4HR PRN #1 each 09/29/22 Inhaler] Amoxicillin 500 mg PO TID #21 cap 09/29/22 dexAMETHasone [Decadron] 4 mg PO DAILY #5 tablet 09/29/22 predniSONE [Deltasone] 20 mg PO BID #10 tab 10/17/22 Amox/Clav 875/125 [Augmentin] 1 each PO Q12H #10 tablet 12/07/22 - Allergies Allergies/Adverse Reactions: Allergies Allergy/AdvReac Type Severity Reaction Status Date / Time No Known Drug Allergies Allergy Verified 01/05/23 14:11 - Social History Does the pt smoke?: No Smoking Status: Never smoker Does the pt drink ETOH?: No Does the pt have substance abuse?: No - Immunizations Immunizations are current?: Yes - POLST Patient has POLST: No PD ED PE NORMAL - Vitals Vital signs reviewed: Yes - General General: Alert and oriented X 3, No acute distress, Well developed/nourished - HEENT HEENT: Atraumatic, PERRL, EOMI, Moist mucous membranes - Neck Neck: Supple, no meningeal sign - Cardiac Cardiac: RRR, No murmur - Respiratory Respiratory: No respiratory distress, Clear bilaterally - Abdomen Abdomen: Soft, Non tender, Non distended - Derm Derm: Normal color, Warm and dry, No rash - Extremities Extremities: No deformity, No edema, No calf tenderness / cord - Neuro Neuro: Alert and oriented X 3, early morning 2-12 intact, Normal speech - Psych Psych: Normal mood, Normal affect Results - Vitals Vitals: Oxygen O2 Source Room air - Rads (name of study) chest XR Relevant Findings:: Final report received, See rad report (Negative) PD Medical Decision Making - ED course Complexity details: reviewed old records, reviewed results, re-evaluated patient, considered differential, d/w patient ED course: The patient has been seen many times for the same pain and has had multiple EKGs in the past demonstrating normal sinus rhythm with no concerning findings. The patient was found to have a normal rhythm and rate on examination and given her age, previous work-ups, and overall low risk status, I did not feel another EKG needed to be done for these chronic and recurrent symptoms. A chest x-ray was performed and found to be negative. I discussed with the patient that she needs to speak with her primary doctor about whether further specialty evaluation as an outpatient is warranted. However, no emergent condition has been identified today and the patient is stable for discharge home. Departure - Departure Disposition: 01 Home, Self Care Clinical Impression: Chest pain Qualifiers: Chest pain type: unspecified Qualified Code(s): R07.9 - Chest pain, unspecified Condition: Stable Instructions: ED Chest Pain Atypical Unkn Cause Comments: Your chest x-ray looks good today. You have had extensive work-up in the ED for this chest pain and nothing emergent has shown it. Given your age and the lack of other risk factors, the likelihood of a serious cause of chest pain is very low. It is important that you make an appointment with your primary doctor even if it is some weeks or a couple months out so that you can be followed up for this and come up with an outpatient plan, as there is not much else we can do in the emergency department for your ongoing and chronic symptoms. You may take ibuprofen and/or Tylenol as needed to help with the pain. Forms: PCP List Discharge Date/Time: 01/05/23 18:50
[2023-01-05 18:12] VITALS: BP 146/89; O2SAT 100
== END 2023-01-05 18:50 | disposition home or self-care (01) ==
LOC: ED 14:05
DX: R07.89 Other chest pain (principal); Z79.899 Other long term (current) drug therapy
CPT/HCPCS: 96372; 99283

== ENCOUNTER 2023-01-24 14:20 | Emergency (ER) | payer OTHER ==
[2023-01-24 14:51] VITALS: BP 137/77; O2SAT 99
[2023-01-24] MEDS ORDERED: IBUPROFEN 600 MG TABLET PO STA (15:34)
[2023-01-24] MEDS ORDERED: HYDROcod/ACETAM 5/325 MG TABLET PO STA (15:34)
--- NOTE | 2023-01-24 15:37 | ED Physician Documentation ---
PD HPI URI - Stated complaint Stated Complaint: FEVER,C+ - Chief complaint Chief Complaint: Resp - History obtained from History obtained from: Patient - Additional information Additional information: 22-year-old with history of asthma developed symptomatic COVID last night with shortness of breath, fevers, chills and severe body aches. Body aches were not responsive to Tylenol. 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 HEENT: None Psych: Depression, Anxiety, ADD/ADHD Musculoskeletal: Other Derm: None - Past Surgical History Past Surgical History: No HEENT: Other - Present Medications Home Medications: Ambulatory Orders Medication Instructions Recorded Confirmed Montelukast [Singulair] 10 mg PO QPM 11/17/21 11/17/21 Propranolol HCl 20 mg PO DAILY PRN 11/17/21 11/17/21 Testosterone Cypionate 0 mg IM Q7D 11/17/21 11/17/21 Cetirizine [ZyrTEC] 10 mg PO DAILY 06/17/22 06/17/22 Ibuprofen [Motrin] 600 mg PO Q6H PRN 06/17/22 06/17/22 cephALEXin [Keflex] 500 mg PO Q6H 06/17/22 06/17/22 Albuterol Sulf [Ventolin Hfa 1 - 2 puffs INH Q4HR PRN #1 each 09/29/22 Inhaler] Amoxicillin 500 mg PO TID #21 cap 09/29/22 dexAMETHasone [Decadron] 4 mg PO DAILY #5 tablet 09/29/22 predniSONE [Deltasone] 20 mg PO BID #10 tab 10/17/22 Amox/Clav 875/125 [Augmentin] 1 each PO Q12H #10 tablet 12/07/22 HYDROcod/ACETAM 5/325 [[place] 5/325] 1 - 2 tab PO Q6H PRN #15 tablet 01/24/23 Nirmatrelvir/Ritonavir [Paxlovid 1 each PO BID #1 pkt 01/24/23 300-100 mg Dose Pack] - Allergies Allergies/Adverse Reactions: Allergies Allergy/AdvReac Type Severity Reaction Status Date / Time No Known Drug Allergies Allergy Verified 01/24/23 14:48 - Social History Does the pt smoke?: No Smoking Status: Never smoker Does the pt drink ETOH?: No Does the pt have substance abuse?: Yes Substance Use and Type: Marijuana - Immunizations Immunizations are current?: Yes - POLST Patient has POLST: No PD ED PE NORMAL - Vitals Vital signs reviewed: Yes - General General: Alert and oriented X 3, No acute distress - Neck Neck: Supple, no meningeal sign, No bony TTP - Cardiac Cardiac: RRR, No murmur - Respiratory Respiratory: No respiratory distress, Clear bilaterally - Abdomen Abdomen: Non tender - Neuro Neuro: Alert and oriented X 3, Normal speech - Psych Psych: Normal mood, Normal affect Results - Vitals Vitals: Vital Signs - 24 hr 01/24/23 14:43 Temperature 37.5 C Heart Rate 124 H Respiratory 16 Rate Blood Pressure 137/77 H O2 Saturation 99 Oxygen O2 Source Room air PD Medical Decision Making - ED course ED course: Discussed antivirals and patient would like to go ahead with them. Departure - Departure Disposition: 01 Home, Self Care Clinical Impression: COVID-19 Condition: Good Record reviewed to determine appropriate education?: Yes Instructions: ED Viral Syndrome Prescriptions: HYDROcod/ACETAM 5/325 [[place] 5/325] 1 - 2 tab PO Q6H PRN #15 tablet PRN Reason: Pain Nirmatrelvir/Ritonavir [Paxlovid 300-100 mg Dose Pack] 1 each PO BID #1 pkt Comments: I sent your prescription electronically [place] the [facility] [place] Quarantine per CDC guidelines (5 days strict and then another 5 days with a mask. Return for new or worsening symptoms. In addition to the prescription medications you can take ibuprofen as needed for the fevers. Drink plenty of fluids.
== END 2023-01-24 15:54 | disposition home or self-care (01) ==
LOC: ED 14:20
DX: U07.1 COVID-19 (principal)
CPT/HCPCS: 99282; A9270

== ENCOUNTER 2023-01-28 00:56 | Emergency (ER) | payer OTHER ==
[2023-01-28] MEDS ORDERED: ONDANSETRON ODT 4 MG TABLET TL STA (01:08)
[2023-01-28] MEDS ORDERED: SODIUM CHLORIDE 0.9% 1,000 ML IV STA (02:05)
[2023-01-28] MEDS ORDERED: LIDOCAINE VISCOUS 2% 15 ML UDC MM STA (02:06)
[2023-01-28] MEDS ORDERED: MAG HYDROX/AL HYDROX/SIMETH 30 ML UDC PO STA (02:06)
[2023-01-28] MEDS ORDERED: FAMOTIDINE 20 MG/2 ML VIAL IVP STA (02:06)
[2023-01-28] MEDS ORDERED: ONDANSETRON 4 MG/2 ML VIAL IVP STA (02:06)
[2023-01-28] MEDS ORDERED: diphenhydrAMINE ELIXIR 25 MG/10 ML UDC PO STA (02:07)
[2023-01-28] MEDS ORDERED: KETOROLAC 15 MG/ML VIAL IVP STA (02:07)
--- NOTE | 2023-01-28 02:08 | ED Physician Documentation ---
History of Present Illness - Stated complaint Stated Complaint: COUGHING BLOOD/VOMITING/COVID+ - Chief complaint Chief Complaint: Resp - History obtained from History obtained from: Patient - Additonal information Additional information: 22-year-old transgender female to male person (he/him - preferred pronouns) with past medical history of asthma, recently diagnosed COVID, currently on Paxlovid, presents with persistent vomiting keeping him from taking his medication properly. He also states that he has been coughing up chunks of blood. 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 HEENT: None Psych: Depression, Anxiety, ADD/ADHD Musculoskeletal: Other Derm: None - Past Surgical History Past Surgical History: No HEENT: Other - Present Medications Home Medications: Ambulatory Orders Medication Instructions Recorded Confirmed Montelukast [Singulair] 10 mg PO QPM 11/17/21 11/17/21 Propranolol HCl 20 mg PO DAILY PRN 11/17/21 11/17/21 Testosterone Cypionate 0 mg IM Q7D 11/17/21 11/17/21 Cetirizine [ZyrTEC] 10 mg PO DAILY 06/17/22 06/17/22 Ibuprofen [Motrin] 600 mg PO Q6H PRN 06/17/22 06/17/22 cephALEXin [Keflex] 500 mg PO Q6H 06/17/22 06/17/22 Albuterol Sulf [Ventolin Hfa 1 - 2 puffs INH Q4HR PRN #1 each 09/29/22 Inhaler] Amoxicillin 500 mg PO TID #21 cap 09/29/22 dexAMETHasone [Decadron] 4 mg PO DAILY #5 tablet 09/29/22 predniSONE [Deltasone] 20 mg PO BID #10 tab 10/17/22 Amox/Clav 875/125 [Augmentin] 1 each PO Q12H #10 tablet 12/07/22 HYDROcod/ACETAM 5/325 [[place] 5/325] 1 - 2 tab PO Q6H PRN #15 tablet 01/24/23 Nirmatrelvir/Ritonavir [Paxlovid 1 each PO BID #1 pkt 01/24/23 300-100 mg Dose Pack] Ondansetron Odt [Zofran Odt] 4 mg TL Q6H PRN #10 tablet 01/28/23 - Allergies Allergies/Adverse Reactions: Allergies Allergy/AdvReac Type Severity Reaction Status Date / Time No Known Drug Allergies Allergy Verified 01/24/23 14:48 - Social History Does the pt smoke?: No Smoking Status: Never smoker Does the pt drink ETOH?: No Does the pt have substance abuse?: No - Immunizations Immunizations are current?: Yes - POLST Patient has POLST: No PD ED PE NORMAL - Vitals Vital signs reviewed: Yes - General General: Alert and oriented X 3, No acute distress, Well developed/nourished - HEENT HEENT: Atraumatic, PERRL, EOMI, Moist mucous membranes, Pharynx benign - Neck Neck: Supple, no meningeal sign - Cardiac Cardiac: RRR - Respiratory Respiratory: No respiratory distress, Clear bilaterally - Abdomen Abdomen: Non tender, Non distended - Derm Derm: Normal color, Warm and dry - Extremities Extremities: No tenderness to palpate, No edema, No calf tenderness / cord - Neuro Neuro: Alert and oriented X 3, No motor deficit, No sensory deficit Results - Vitals Vitals: Vital Signs - 24 hr 01/28/23 01/28/23 01:14 02:15 Temperature 36.7 C Heart Rate 82 79 Respiratory 20 Rate Blood Pressure 151/103 H 144/89 H O2 Saturation 96 97 Oxygen O2 Source Room air - Labs Labs: Laboratory Tests 01/28/23 01/28/23 02:18 02:35 WBC 7.3 RBC 4.82 Hgb 13.5 Hct 39.3 MCV 81.5 MCH 28.0 MCHC 34.4 RDW 11.9 L Plt Count 262 MPV 9.5 Neut # (Auto) 4.5 Lymph # (Auto) 1.9 [place] # (Auto) 0.5 Eos # (Auto) 0.5 Baso # (Auto) 0.0 Absolute Nucleated RBC 0.00 Nucleated RBC % 0.0 Urine HCG, Qual NEGATIVE PD Medical Decision Making - ED course ED course: 22y transgender F to M person (he/him) p/w hemoptysis X 2 days in setting of cov id-19 infection. since patient is on testosterone gender affirming therapy, he is at higher risk for PE in setting of hemoptysis. covid-19 has also been linked with coagulopathy. with this in mind, shared decision was made to obtain cta chest to r/o PE. CTA negative. symptom care discussed. patient feeling much better s/p GI cocktail and IV zofran for nausea. plan to dc home with outpatient f/u with pcp. return precautions given. Departure - Departure Clinical Impression: COVID, Hemoptysis, Nausea Condition: Stable Instructions: COVID-19 [facility] Prescriptions: Ondansetron Odt [Zofran Odt] 4 mg TL Q6H PRN #10 tablet PRN Reason: Nausea / Vomiting Comments: You were seen in the emergency department for coughing up blood. Your CT of the chest showed no pulmonary embolism. Electronic prescription for Zofran antinausea medication was sent to [facility]. Please follow-up with your primary care provider and return to the emergency department if you have any new or worsening symptoms or other concerns. Forms: PCP List
[2023-01-28 02:28] LABS: BASOPHILS % (AUTO) 0.3 %; EOSINOPHILS # (AUTO) 0.5 10^3/uL (0.0-0.7); EOSINOPHILS % (AUTO) 6.1 %; HCT - HEMATOCRIT 39.3 % (37.0-47.0); HGB - HEMOGLOBIN 13.5 g/dL (12.0-16.0); LYMPHOCYTES # (AUTO) 1.9 10^3/uL (1.5-3.5); LYMPHOCYTES % (AUTO) 25.7 %; MEAN CORPUSCULAR HGB CONC 34.4 g/dL (32.0-36.0); MEAN CORPUSCULAR VOLUME 81.5 fL (81.0-99.0); MEAN PLATELET VOLUME 9.5 fL (7.9-10.8); MONOCYTES # (AUTO) 0.5 10^3/uL (0.0-1.0); NEUTROPHILS # (AUTO) 4.5 10^3/uL (1.5-6.6); NEUTROPHILS % (AUTO) 60.8 %; PLT - PLATELET COUNT 262 10^3/uL (130-450); RED BLOOD COUNT 4.82 10^6/uL (4.20-5.40); RED CELL DISTRIBUTION WIDTH 11.9 % (12.0-15.0); WHITE BLOOD COUNT 7.3 x10^3/uL (4.8-10.8)
[2023-01-28 02:44] LABS: HCG UR QUAL NEGATIVE
[2023-01-28] MEDS ORDERED: iohexoL-300 100 ML VIAL IVP ONE (03:31)
[2023-01-28 04:08] LABS: ALBUMIN 4.6 g/dL (3.2-5.5); ALBUMIN/GLOBULIN RATIO 1.5 (1.0-2.2); BILIRUBIN,TOTAL 0.5 mg/dL (0.2-1.0); CALCIUM 9.7 mg/dL (8.5-10.3); CREATININE 0.6 mg/dL (0.6-1.3); POTASSIUM 3.6 mmol/L (3.5-4.5); TOTAL PROTEIN 7.7 g/dL (6.4-8.9)
[2023-01-28 04:38] VITALS: BP 106/72; O2SAT 100
--- NOTE | 2023-01-28 08:26 | CT Report ---
PROCEDURE: ANGIO CHEST W/WO INDICATIONS: r/o PE CONTRAST: Omni 300 80ml TECHNIQUE: After the administration of intravenous contrast, 2 mm axial images were acquired from the pulmonary apices to the posterior costophrenic angles during the arterial phase. In addition, 1 mm lung kernel and 5 mm soft tissue kernel reconstructions were performed. 3-dimensional coronal oblique maximum int ensity projection (MIP) reformats, 8 mm axial MIP, and 5 mm coronal and sagittal MPR reformats were t hen performed through the thorax. For radiation dose reduction, the following was used: automated exp osure control, adjustment of mA and/or kV according to patient size. COMPARISON: Chest x-ray, 01/05/2023 FINDINGS: Image quality: Excellent. Large vessels: No filling defects within the opacified pulmonary arteries, accounting for motion and contrast timing. No evidence of acute aortic syndrome or aortic aneurysm. Lungs and pleura: No consolidation. No pleural effusions. No pneumothorax. No suspicious pulmonary n odules which require follow up. Mediastinum: Heart size is normal. No pericardial effusion. No large vessel abnormality. No mediastin al adenopathy by size criteria. Chest wall and lower neck: Thyroid is unremarkable. No axillary or supraclavicular adenopathy by size . Bones: No aggressive osseous abnormality. Upper Abdomen: Unremarkable. IMPRESSION: 1. No pulmonary embolus. 2. No acute abnormalities. Findings are concordant with preliminary interpretation provided by [facility]. Reviewed by: Benoit Alvarenga MD on 01/28/2023 8:25 AM PST Approved by: Benoit Alvarenga MD on 01/28/2023 8:25 AM PST Station ID: [id number]
== END 2023-01-28 05:01 | disposition home or self-care (01) ==
LOC: ED 00:56
DX: U07.1 COVID-19 (principal); R04.2 Hemoptysis; R11.2 Nausea with vomiting, unspecified; F64.0 Transsexualism; Z79.899 Other long term (current) drug therapy
CPT/HCPCS: 36415; 71275; 80053; 81025; 83690; 85025; 96374; 99283; 99284; A9270; Q9967

== ENCOUNTER 2023-01-30 03:39 | Emergency (ER) | payer OTHER ==
[2023-01-30 04:00] VITALS: BP 123/85; O2SAT 100
[2023-01-30] MEDS ORDERED: BENZONATATE 100 MG CAPSULE PO STA (04:06)
--- NOTE | 2023-01-30 04:08 | ED Physician Documentation ---
PD HPI HEENT - Stated complaint Stated Complaint: SOA/CHEST TIGHTNESS/COVID+ - Chief complaint Chief Complaint: Resp - History obtained from History obtained from: Patient - Additional information Additional information: The patient comes to the emergency department chief complaint of chest tightness and cough. She states that she was diagnosed with COVID about 10 days ago, and she felt like she was starting to get a little better but then her cough seemed to get worse again over the last 24 hours. She denies any fevers or sputum production but states that she has just been having an ongoing urge to cough which she feels like is coming from her throat. She states the cough is dry. No shortness of breath. She was just seen here a couple of days ago and had extensive workup including labs and CT angiogram of the chest. She has been seen many times in our department for recurrent chest pain. No other complaints at this time. 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 HEENT: None Psych: Depression, Anxiety, ADD/ADHD Musculoskeletal: Other Derm: None - Past Surgical History Past Surgical History: No HEENT: Other - Present Medications Home Medications: Ambulatory Orders Medication Instructions Recorded Confirmed Montelukast [Singulair] 10 mg PO QPM 11/17/21 01/30/23 Testosterone Cypionate 0 mg IM Q7D 11/17/21 01/30/23 Cetirizine [ZyrTEC] 10 mg PO DAILY 06/17/22 01/30/23 Ibuprofen [Motrin] 600 mg PO Q6H PRN 06/17/22 01/30/23 Albuterol Sulf [Ventolin Hfa 1 - 2 puffs INH Q4HR PRN #1 each 09/29/22 01/30/23 Inhaler] HYDROcod/ACETAM 5/325 [[place] 5/325] 1 - 2 tab PO Q6H PRN #15 tablet 01/24/23 01/30/23 Nirmatrelvir/Ritonavir [Paxlovid 1 each PO BID #1 pkt 01/24/23 01/30/23 300-100 mg Dose Pack] Ondansetron Odt [Zofran Odt] 4 mg TL Q6H PRN #10 tablet 01/28/23 01/30/23 Benzonatate [Tessalon] 200 mg PO TID PRN #21 cap 01/30/23 Dicyclomine HCl 10 mg PO QID PRN 01/30/23 01/30/23 Fluticasone 110 Mcg [Flovent] 1 puffs INH BID 01/30/23 01/30/23 - Allergies Allergies/Adverse Reactions: Allergies Allergy/AdvReac Type Severity Reaction Status Date / Time No Known Drug Allergies Allergy Verified 01/24/23 14:48 - Social History Does the pt smoke?: No Smoking Status: Never smoker Does the pt drink ETOH?: No Does the pt have substance abuse?: No Substance Use and Type: Marijuana - Immunizations Immunizations are current?: Yes - POLST Patient has POLST: No PD ED PE NORMAL - Vitals Vital signs reviewed: Yes - General General: Alert and oriented X 3, No acute distress, Well developed/nourished - HEENT HEENT: Atraumatic, PERRL, EOMI, Moist mucous membranes - Neck Neck: Supple, no meningeal sign - Cardiac Cardiac: RRR, No murmur - Respiratory Respiratory: No respiratory distress, Clear bilaterally, Other (Intermittent dry cough but otherwise normal respiratory exam.) - Abdomen Abdomen: Soft, Non tender, Non distended - Derm Derm: Normal color, Warm and dry, No rash - Extremities Extremities: No deformity - Neuro Neuro: Other (Grossly intact) - Psych Psych: Normal mood, Normal affect Results - Vitals Vitals: Vital Signs - 24 hr 01/30/23 03:52 Temperature 36.3 C L Heart Rate 114 H Respiratory 16 Rate Blood Pressure 123/85 H O2 Saturation 100 Oxygen O2 Source Room air - EKG (time done) 0350 EKG releavant findings:: EKG personally interpreted by author of this note. Relevant findings are: Rate: Rate (enter#) (80) Rhythm: NSR [place]: Normal Intervals: Normal OR QRS: Normal Ischemia: Normal ST segments Compare to prior EKG: Unchanged from prior EKG Computer interpretation: Agree with computer PD Medical Decision Making - ED course Complexity details: considered differential, d/w patient ED course: I discussed with the patient that she has had extensive workup recently and without development of fever, sputum production, or abnormal breath sounds, I do not feel the patient needs to have repeat imaging. I have given her dose of Tessalon here. She will also get a prescription for the same to go home with. She is concerned because she has to take a flight to [place] in a couple of days and we have discussed that the cough is going to likely run its course at its own rate, regardless of what we do. I do not feel the patient needs antibiotics at this point in time. We have discussed the usual indications for follow-up and return. Departure - Departure Disposition: Home, Self Care Clinical Impression: COVID-19 Condition: Stable Instructions: ED Viral Syndrome Prescriptions: Benzonatate [Tessalon] 200 mg PO TID PRN #21 cap PRN Reason: Cough Comments: Extensive workup a couple of days ago was completely negative and at this point, given that you have no development of fever, sputum production, or abnormal lung sounds, there is no utility in repeating imaging. You have been given a dose of cough medicine today and a prescription for the same is been electronically transmitted to the [facility] pharmacy in [place]. Most likely, this cough is going to simply have to run its course and ultimately go away on its own. Please follow-up with your primary doctor for further concerns.
== END 2023-01-30 04:22 | disposition home or self-care (01) ==
LOC: ED 03:39
DX: U07.1 COVID-19 (principal)
CPT/HCPCS: 93005; 99283; A9270

== ENCOUNTER 2023-01-31 15:20 | Emergency (ER) | payer OTHER ==
[2023-01-31 15:41] VITALS: O2SAT 100
[2023-01-31 15:51] LABS: BASOPHILS % (AUTO) 0.4 %; EOSINOPHILS # (AUTO) 0.4 10^3/uL (0.0-0.7); HCT - HEMATOCRIT 41.1 % (37.0-47.0); HGB - HEMOGLOBIN 14.2 g/dL (12.0-16.0); LYMPHOCYTES # (AUTO) 1.9 10^3/uL (1.5-3.5); LYMPHOCYTES % (AUTO) 26.4 %; MEAN CORPUSCULAR HEMOGLOBIN 27.7 pg (27.0-31.0); MEAN CORPUSCULAR HGB CONC 34.5 g/dL (32.0-36.0); MEAN CORPUSCULAR VOLUME 80.1 fL (81.0-99.0); MEAN PLATELET VOLUME 9.4 fL (7.9-10.8); MONOCYTES # (AUTO) 0.4 10^3/uL (0.0-1.0); MONOCYTES % (AUTO) 6.3 %; NEUTROPHILS # (AUTO) 4.3 10^3/uL (1.5-6.6); NEUTROPHILS % (AUTO) 61.6 %; PLT - PLATELET COUNT 320 10^3/uL (130-450); RED BLOOD COUNT 5.13 10^6/uL (4.20-5.40); RED CELL DISTRIBUTION WIDTH 11.5 % (12.0-15.0)
--- NOTE | 2023-01-31 15:59 | ED Physician Documentation ---
PD HPI NVD - Stated complaint Stated Complaint: ,C+ - Chief complaint Chief Complaint: Abd Pain - History obtained from History obtained from: Patient - History of Present Illness Timing - onset: Today (The patient has noted onset of watery yellow odorous frequent diarrhea since yesterday. Has been taking Paxlovid and finished 1 and half days ago for COVID. History of irritable bowel. No unusual foods. No jaundice.), Yesterday Timing - duration: Days (1-2) Timing - details: Abrupt onset, Still present Associated symptoms: Abdominal pain (cramping intermittent lower, in area of common IBS.) Contributing factors: Sick contact (has COVID). No: Bad food, Travel, Recent antibiotics (antivirals the past 2 days Paxlovid.) Improved by: No: BM Recently seen: Emergency Dept Review of Systems Constitutional: reports: Fever, Chills, Myalgias, Fatigue Nose: reports: Rhinorrhea / runny nose, Congestion Throat: denies: Sore throat Respiratory: reports: Cough Neurologic: reports: Generalized weakness. 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 HEENT: None Psych: Depression, Anxiety, ADD/ADHD Musculoskeletal: Other Derm: None - Past Surgical History Past Surgical History: No HEENT: Other - Present Medications Home Medications: Ambulatory Orders Medication Instructions Recorded Confirmed Montelukast [Singulair] 10 mg PO QPM 11/17/21 01/31/23 Testosterone Cypionate 0 mg IM Q7D 11/17/21 01/31/23 Cetirizine [ZyrTEC] 10 mg PO DAILY 06/17/22 01/31/23 Ibuprofen [Motrin] 600 mg PO Q6H PRN 06/17/22 01/31/23 Albuterol Sulf [Ventolin Hfa 1 - 2 puffs INH Q4HR PRN #1 each 09/29/22 01/31/23 Inhaler] Benzonatate [Tessalon] 200 mg PO TID PRN #21 cap 01/30/23 01/31/23 Dicyclomine HCl 10 mg PO QID PRN 01/30/23 01/31/23 Fluticasone 110 Mcg [Flovent] 2 puffs INH BID 01/30/23 01/31/23 Dicyclomine [Bentyl] 10 mg PO TID PRN #30 cap 01/31/23 Diphenoxylate/Atropine [Lomotil] 1 each PO QID PRN #16 tablet 01/31/23 L.acid/L.casei/B.bif/B.roldan/Fos 1 each PO TID 7 Days #20 cap 01/31/23 [Probiotic Blend Capsule] - Allergies Allergies/Adverse Reactions: Allergies Allergy/AdvReac Type Severity Reaction Status Date / Time No Known Drug Allergies Allergy Verified 01/24/23 14:48 - Social History Does the pt smoke?: No Smoking Status: Never smoker Does the pt drink ETOH?: No Does the pt have substance abuse?: No - Immunizations Immunizations are current?: Yes - POLST Patient has POLST: No PD ED PE NORMAL - Vitals Vital signs reviewed: Yes - General General: Alert and oriented X 3, No acute distress, Well developed/nourished - Neck Neck: Supple, no meningeal sign, No adenopathy - Cardiac Cardiac: RRR, No murmur - Respiratory Respiratory: Clear bilaterally - Abdomen Abdomen: Normal bowel sounds, Soft, Non tender, Non distended, No organomegaly - Female Female : Deferred - Rectal Rectal: Deferred - Back Back: No CVA TTP - Derm Derm: Normal color, Warm and dry Results - Vitals Vitals: Oxygen O2 Source Room air - Labs Labs: Laboratory Tests 01/31/23 01/31/23 01/31/23 15:45 15:45 16:05 WBC 7.0 RBC 5.13 Hgb 14.2 Hct 41.1 MCV 80.1 L MCH 27.7 MCHC 34.5 RDW 11.5 L Plt Count 320 MPV 9.4 Neut # (Auto) 4.3 Lymph # (Auto) 1.9 [place] # (Auto) 0.4 Eos # (Auto) 0.4 Baso # (Auto) 0.0 Absolute Nucleated RBC 0.00 Nucleated RBC % 0.0 Sodium 137 Potassium 3.8 Chloride 101 Carbon Dioxide 27 Anion Gap 9.0 BUN 10 Creatinine 0.6 Estimated GFR (MDRD) 126 Glucose 91 Calcium 9.9 Total Bilirubin 0.5 AST 29 ALT 29 Alkaline Phosphatase 63 Total Protein 8.2 Albumin 4.8 Globulin 3.4 Albumin/Globulin Ratio 1.4 Lipase 23 Urine Color YELLOW Urine Clarity CLEAR Urine pH 6.0 Ur Specific [place] 1.025 Urine Protein NEGATIVE Urine Glucose (UA) NEGATIVE Urine Ketones >=80 H Urine Occult Blood NEGATIVE Urine Nitrite NEGATIVE Urine Bilirubin NEGATIVE Urine Urobilinogen 0.2 (NORMAL) Ur Leukocyte Esterase NEGATIVE Ur Microscopic Review NOT INDICATED Urine Culture Comments NOT INDICATED PD Medical Decision Making - ED course Complexity details: considered differential (Sebastian did not have diarrheal episode here. Seems likely effect of the COVID and or the Paxlovid (more likely).), d/w patient Departure - Departure Disposition: Home, Self Care Clinical Impression: Acute diarrhea, Abdominal cramping, COVID-19 Condition: Stable Record reviewed to determine appropriate education?: Yes Prescriptions: Dicyclomine [Bentyl] 10 mg PO TID PRN #30 cap PRN Reason: Abdominal Pain Diphenoxylate/Atropine [Lomotil] 1 each PO QID PRN #16 tablet PRN Reason: Diarrhea L.acid/L.casei/B.bif/B.roldan/Fos [Probiotic Blend Capsule] 1 each PO TID 7 Days #20 cap Comments: Your blood count and your basic chemistry panel of your electrolytes as well as liver and pancreas enzymes are normal. Presume the diarrhea you are having is related to some intestinal irritation either from COVID, the Paxlovid, or flareup of your IBS (or all of the above). It does not seem to be related to inflammation of the pancreas or liver and your bilirubin was normal on your blood test. At this point we can treat with some probiotics as well as antidiarrheal medicine and antispasmodic. Use your Zofran at home if needed for nausea. If the diarrhea persists beyond a few more days, then you would want to bring a sample of the your diarrhea to your primary care for more specific testing to see if a bacterial infection developed such as C. difficile, Shigella, Salmonella etc. We sent you home with stool collection material. I sent your prescriptions to [facility] pharmacy. Forms: PCP List Discharge Date/Time: 01/31/23 17:24
[2023-01-31 16:06] LABS: ALBUMIN 4.8 g/dL (3.2-5.5); ALBUMIN/GLOBULIN RATIO 1.4 (1.0-2.2); BILIRUBIN,TOTAL 0.5 mg/dL (0.2-1.0); CALCIUM 9.9 mg/dL (8.5-10.3); CREATININE 0.6 mg/dL (0.6-1.3); POTASSIUM 3.8 mmol/L (3.5-4.5); TOTAL PROTEIN 8.2 g/dL (6.4-8.9)
[2023-01-31] MEDS ORDERED: DIPHENOX/ATROPINE 2.5/0.025 MG TABLET PO STA (16:21)
[2023-01-31 16:39] VITALS: BP 141/92
[2023-01-31 16:44] LABS: GLUCOSE, URINE (UA) NEGATIVE (NEGATIVE); KETONES,URINE (UA) >=80 mg/dL (NEGATIVE); LEUKOCYTE ESTERASE, URINE NEGATIVE (NEGATIVE); NITRITE,URINE NEGATIVE (NEGATIVE); OCCULT BLOOD,URINE NEGATIVE (NEGATIVE); PROTEIN,URINE NEGATIVE (NEGATIVE); UROBILINOGEN,URINE 0.2 (NORMAL) E.U./dL (NORMAL)
[2023-01-31 16:45] LABS: BILIRUBIN,URINE NEGATIVE (NEGATIVE); CLARITY,URINE CLEAR (CLEAR); ICTOTEST,URINE NEGATIVE
[2023-01-31] MEDS ORDERED: DICYCLOMINE 10 MG CAPSULE PO STA (16:51)
== END 2023-01-31 17:24 | disposition home or self-care (01) ==
LOC: ED 15:20
DX: R19.7 Diarrhea, unspecified (principal); R10.9 Unspecified abdominal pain; U07.1 COVID-19
CPT/HCPCS: 36415; 80053; 81003; 83690; 85025; 99283; A9270; 81001; 87086

== ENCOUNTER 2023-10-04 22:34 | Emergency (ER) | payer OTHER ==
[2023-10-04 23:14] LABS: BILIRUBIN,URINE NEGATIVE (NEGATIVE); GLUCOSE, URINE (UA) NEGATIVE (NEGATIVE); KETONES,URINE (UA) NEGATIVE (NEGATIVE); LEUKOCYTE ESTERASE, URINE SMALL (NEGATIVE); NITRITE,URINE NEGATIVE (NEGATIVE); OCCULT BLOOD,URINE LARGE (NEGATIVE); PROTEIN,URINE TRACE mg/dL (NEGATIVE); UROBILINOGEN,URINE 1 (NORMAL) E.U./dL (NORMAL)
[2023-10-04 23:16] LABS: CLARITY,URINE HAZY (CLEAR); HCG UR QUAL NEGATIVE
[2023-10-04 23:20] LABS: BACTERIA,URINE Few /HPF (None Seen); RBC,URINE TNTC /HPF (0-5); SQUAMOUS EPITHELIAL CELL,UR FEW Squamous (<= Few)
--- NOTE | 2023-10-05 00:45 | ED Physician Documentation ---
History of Present Illness - Stated complaint Stated Complaint: GI - Chief complaint Chief Complaint: General - History obtained from History obtained from: Patient - Additonal information Additional information: The patient comes to the emergency department chief complaint of dysuria and mild hematuria that started today. No fevers or chills. Some generalized abdominal pain. No other complaints at this time. 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 HEENT: None Psych: Depression, Anxiety, ADD/ADHD Musculoskeletal: Other Derm: None - Past Surgical History Past Surgical History: No HEENT: Other - Present Medications Home Medications: Ambulatory Orders Medication Instructions Recorded Confirmed Testosterone Cypionate 0 mg IM Q7D 11/17/21 01/31/23 Cetirizine [ZyrTEC] 10 mg PO DAILY 06/17/22 01/31/23 Lidocaine Patch 5% [Lidoderm Patch] 1 patch TOP DAILY 10/04/23 Sulfamethox/Trimeth 800/160 1 each PO BID #14 tablet 10/05/23 [Bactrim Ds 800/160] - Allergies Allergies/Adverse Reactions: Allergies Allergy/AdvReac Type Severity Reaction Status Date / Time No Known Drug Allergies Allergy Verified 10/04/23 22:43 - Social History Does the pt smoke?: No Smoking Status: Never smoker Does the pt drink ETOH?: No Does the pt have substance abuse?: No - Immunizations Immunizations are current?: Yes - POLST Patient has POLST: No PD ED PE NORMAL - Vitals Vital signs reviewed: Yes - General General: No acute distress, Well developed/nourished, Other (Alert, grossly oriented,) - HEENT HEENT: Atraumatic, EOMI, Moist mucous membranes - Neck Neck: Supple, no meningeal sign - Cardiac Cardiac: RRR, No murmur - Respiratory Respiratory: No respiratory distress, Clear bilaterally - Abdomen Abdomen: Soft, Non distended, Other (Mild diffuse tenderness throughout abdomen, no rebound or guarding) - Derm Derm: Normal color, Warm and dry, No rash - Extremities Extremities: No deformity - Neuro Neuro: Other (Alert, grossly intact) - Psych Psych: Normal mood, Normal affect Results - Vitals Vitals: Vital Signs - 24 hr 10/04/23 22:34 Temperature 36.7 C Heart Rate 82 Respiratory 16 Rate Blood Pressure 152/91 H O2 Saturation 100 Oxygen O2 Source Room air - Labs Labs: Laboratory Tests 10/04/23 10/04/23 22:30 22:30 Urine Color YELLOW Urine Clarity HAZY Urine pH 7.0 Ur Specific [place] 1.015 Urine Protein TRACE Urine Glucose (UA) NEGATIVE Urine Ketones NEGATIVE Urine Occult Blood LARGE H Urine Nitrite NEGATIVE Urine Bilirubin NEGATIVE Urine Urobilinogen 1 (NORMAL) Ur Leukocyte Esterase SMALL H Urine RBC TNTC H Urine WBC 11-25 H Ur Squamous Epith Cells FEW Squamous Urine Bacteria Few Ur Microscopic Review INDICATED Urine Culture Comments INDICATED Urine HCG, Qual NEGATIVE PD Medical Decision Making - ED course Complexity details: reviewed results, re-evaluated patient, considered differential, d/w patient ED course: Urinalysis was obtained and positive for infection. The patient was started on Bactrim in the emergency department and prescription was sent in for the same. We have discussed treatment plan and the usual indications for return. Departure - Departure Disposition: 01 Home, Self Care Clinical Impression: UTI (urinary tract infection) Qualifiers: Urinary tract infection type: acute cystitis Hematuria presence: with hematuria Qualified Code(s): N30.01 - Acute cystitis with hematuria Condition: Stable Instructions: ED UTI Cystitis Female Prescriptions: Sulfamethox/Trimeth 800/160 [Bactrim Ds 800/160] 1 each PO BID #14 tablet Comments: Your urinalysis shows a urinary tract infection and you have been started on antibiotics here in the emergency department for this today. A prescription for the same is been electronically transmitted to the [facility] pharmacy in [place] at your request. Please pick this up first thing when you wake up and take your next dose then. Please take the entire course as directed until course is complete. Drink plenty of fluids to help flush your bladder.
[2023-10-05] MEDS: SULFAMETH/TRIMETH DS 800/160 MG TABLET PO STA (00:53)
[2023-10-05 01:13] VITALS: BP 138/84; O2SAT 98
== END 2023-10-05 01:09 | disposition home or self-care (01) ==
LOC: ED 22:34
DX: N30.01 Acute cystitis with hematuria (principal)
CPT/HCPCS: 81001; 81025; 87086; 99282; 99283; A9270; 81003

== ENCOUNTER 2023-10-14 08:00 | Outpatient (CLI) | payer OTHER | END 2023-10-14 23:59 | disposition home or self-care (01) | LOC: LAB.N 08:00 | PROVIDERS: ATTEND Nurse Practitioner | DX: R30.0 Dysuria (principal) | CPT/HCPCS: 87086 ==